=== PATIENT | male | born 1985 | race Caucasian/White ===

== ENCOUNTER 2017-09-18 10:34 | Emergency (ER) | payer OTHER ==
[~2017-09-18] VITALS: Ht 180.3 cm; Wt 90.7 kg
[2017-09-18] MEDS ORDERED: SUBOXONE 8 MG-1 EACH SL (10:54)
[2017-09-18] MEDS ORDERED: Colace100 MG PO (11:06)
[2017-09-18] MEDS ORDERED: Miralax17 GM PO (21:41)
[2017-09-18] MEDS ORDERED: METAMUCIL POWD174 GM PO (21:41)
== END 2017-09-18 11:21 | disposition home or self-care (01) ==
LOC: ER 10:34
DX: K59.00 Constipation, unspecified (principal)
CPT/HCPCS: 99283

== ENCOUNTER 2017-09-18 20:55 | Emergency (ER) | payer OTHER ==
[~2017-09-18] VITALS: Ht 180.3 cm; Wt 90.7 kg
[~2017-09-18 20:55] MED LIST: Colace100 MG PO; SUBOXONE 8 MG-1 EACH SL
[2017-09-18] MEDS ORDERED: Miralax17 GM PO (21:41)
[2017-09-18] MEDS ORDERED: METAMUCIL POWD174 GM PO (21:41)
== END 2017-09-18 22:18 | disposition home or self-care (01) ==
LOC: ER 20:55
DX: K59.00 Constipation, unspecified (principal); Z79.899 Other long term (current) drug therapy
CPT/HCPCS: 99282